=== PATIENT | male | born 1940 | race Caucasian/White ===

== ENCOUNTER 2019-04-20 17:00 | Inpatient (IN) | payer OTHER ==
[~2019-04-20] VITALS: Ht 167.6 cm; Wt 77.1 kg
[2019-04-20] MEDS ORDERED: NEURONTIN300 MG PO (17:12)
[2019-04-20] MEDS ORDERED: ASA81 MG (17:13)
--- NOTE | 2019-04-20 17:13 | NUR ---
SE RECIBE MASCULINO DE 78 ANOS,SONOLIENTO,EN COMPANIA DE FAMILIAR QUIEN REFIERE DEBILIDAD LA CUAL COMENZO HOY. SE UBICA PACIENTE EN AREA DE OBSERVACION PARA EVALUACION MEDICA.
--- NOTE | 2019-04-20 17:29 | NUR ---
MS ESTRADA ORIENTA PTE Y FAMILIARES SOBRE TX MEDICO EL CUAL REFIERE ENTENDER.SE LE EXTRAEN MUESTRAS BAJO MEDIDAS ASEPTICAS,SE CANALIZA Y SE COLOCA FLUIDOS DE MANTENIMIENTO,SE NOTIFICA CT Y SE REALIZA EKG POR MR LIAO.
[2019-04-20] MEDS ORDERED: VASOTEC2.5 MG PO (18:17)
[2019-05-02] MEDS ORDERED: METOPROLOL TART50 MG PO (17:32)
[2019-05-02] MEDS ORDERED: TAMSULOSIN HCL0.4 MG PO (17:32)
[2019-05-02] MEDS ORDERED: HYDRALAZINE HCL25 MG PO (17:32)
[2019-05-02] MEDS ORDERED: DOXYCYCLINE HY100 M2 PO (17:33)
[2019-05-02] MEDS ORDERED: APETIGEN-PLUS1 EACH PO (17:50)
== END 2019-05-02 19:28 | disposition home or self-care (01) | DRG 659 ==
LOC: ER 17:00 → ICU 20:28 → ICU-2 20:28 → ICU 04-21 14:52 → MEDJ 04-30 07:09 → ICU 04-30 08:45 → MEDJ 04-30 13:23
PROVIDERS: Urology; ADMIT Internal Medicine
PROC: 4A033R1 Measurement of Arterial Saturation, Peripheral, Percutaneous Approach (ICD-10-PCS; 2019-04-20)
PROC: BW28ZZZ Computerized Tomography (CT Scan) of Head (ICD-10-PCS; 2019-04-20)
PROC: BW21ZZZ Computerized Tomography (CT Scan) of Abdomen and Pelvis (ICD-10-PCS; 2019-04-20)
PROC: 02HV33Z Insertion of Infusion Device into Superior Vena Cava, Percutaneous Approach (ICD-10-PCS; 2019-04-20)
PROC: B54NZZZ Ultrasonography of Left Upper Extremity Veins (ICD-10-PCS; 2019-04-25)
PROC: 8E0ZXY6 Isolation (ICD-10-PCS; 2019-04-26)
PROC: BW21ZZZ Computerized Tomography (CT Scan) of Abdomen and Pelvis (ICD-10-PCS; 2019-04-26)
PROC: 0T788DZ Dilation of Bilateral Ureters with Intraluminal Device, Via Natural or Artificial Opening Endoscopic (ICD-10-PCS; principal; 2019-04-28 13:00)
DX: N13.2 Hydronephrosis with renal and ureteral calculous obstruction (principal); I63.89 Other cerebral infarction; G93.41 Metabolic encephalopathy; R65.10 Systemic inflammatory response syndrome (SIRS) of non-infectious origin without acute organ dysfunction; L03.114 Cellulitis of left upper limb; N17.8 Other acute kidney failure; C61 Malignant neoplasm of prostate; R31.0 Gross hematuria; I12.9 Hypertensive chronic kidney disease with stage 1 through stage 4 chronic kidney disease, or unspecified chronic kidney disease; N18.9 Chronic kidney disease, unspecified; M48.061 Spinal stenosis, lumbar region without neurogenic claudication; B95.62 Methicillin resistant Staphylococcus aureus infection as the cause of diseases classified elsewhere

== ENCOUNTER 2019-05-26 14:02 | Inpatient (IN) | payer OTHER ==
[~2019-05-26] VITALS: Ht 165.1 cm; Wt 69.9 kg
[~2019-05-26 14:02] MED LIST: APETIGEN-PLUS1 EACH PO; ASA81 MG; DOXYCYCLINE HY100 M2 PO; HYDRALAZINE HCL25 MG PO; METOPROLOL TART50 MG PO; NEURONTIN300 MG PO; TAMSULOSIN HCL0.4 MG PO; VASOTEC2.5 MG PO
[2019-05-26] MEDS ORDERED: APETIGEN-PLUS1 EACH (15:44)
[2019-05-26] MEDS ORDERED: SIMVASTATIN20 MG (15:45)
--- NOTE | 2019-05-26 15:45 | NUR ---
PTE INDICA QUE LLEVA ISACC SEMANA CON PRESIONES BAJAS. PTE SE OBSERVA TEMBALNDO Y CON DIFICULTAD PARA HABLAR. PTE ALERTA CONSCIENTE Y ORIENTADO X3
--- NOTE | 2019-05-26 16:43 | NUR ---
PACIENTE ALERTA Y ORIENTADO X3. EN BERNIE #16 EN UNIDAD DE DOLOR DE PECHO. PACIENTE REFIERE NO TENER DOLOR EN EL PECHO. SE OBSERVA BUEN PATRON RESPIRATORIO. SATURANDO OXIGENO MANUAL ENTRE 96-98%. CONECTADO A MONITOR CARDIACO. SE ORIENTA SOBRE PROCEDIMIENTO Y TX A RECIBIR Y REFIERE ENTENDER PACIENTE Y ESPOSA. SE REALIZA MUESTRAS DE LABORATOKRIO BAJO MEDIDAS ASEPTICAS. CANALIZACION PATENTE Y JOSLYN DE EDEMA Y ERITEMA. PACIENTE CON LEG POE, ORINA AMARILLO TURBIO Y FETIDA. SE DESCARTA 600ML DE ORINA. SE MANTIENE BAJO OBSERVACION POR CAMBIOS SIGNIFICATIVOS. 1725 SE MIDE TEMPERATURA A PACIENTE EN 104.3F, SE NOTIFICA A DR. SOLARES. MEDICO ORDENA ADMINISTRAR 2 TYLENOL PO STAT, SE ADMINISTRA LAS MISMAS. SE COLOCA COMPRESAS DE HIELO A PACIENTE. SE MANTIENE BAJO OBSERVACION POR CAMBIOS SIGNIFICATIVOS.
--- NOTE | 2019-05-26 21:19 | NUR ---
SE ORIENTA A PACIENTE SOBRE TX A RECIBIR Y REFIERE ENTENDER. SE ADMINISTRA MEDICAMENTO NICOLE ORDEN MEDICA. SE LLAMA A ESPOSA DEL PACIENTE PARA NOTIFICAR QUE EL DR. SOLARES SANYA DE GUILLERMO A PACIENTE Y REFIERE QUE NO TIENE TRANSPORTACION. REFIERE QUE CARD HIJO VIVE LEJOS, NO PUEDE A ESTA HORA Y QUE MANANA TEMPRANO LO LLAMARA PARA QUE LO BUSQUE.
--- NOTE | 2019-05-27 01:19 | NUR ---
SE RECIBE PT ALERTA Y ORIENTADO X3 ESFERAS, AL MOMENTO LO ENTREGAN DE GUILLERMO, INDICA NO TIENE VEE IRSE AL MOMENTO POR LA HORA. REFIERE EN LA MANANA LO VIENEN A BUSCAR.
--- NOTE | 2019-05-27 06:24 | NUR ---
PT ALERTA Y ORIENTADO X3 ESFERAS, DADO DE GUILLERMO DESDE TURNO 3-11, ORIENTADO POR DR SOLARES. SE LLAMA A FAMILIAR: . KIM BOLAND AL [phone] PARA JAIR SEGUIMIENTO AL MISMO. LA CRISTINO INDICA NO PUEDE GUIAR Y LLEGARA APROXIMADAMENTE A LAS 830AM CON UN FAMILIAR. SE LE NOTIFICA ESTO ULTIMO AL PT.
--- NOTE | 2019-05-27 07:16 | NUR ---
SE RECIBE DE TURNO ANTERIOR. PACIENTE ALERTA Y ORIENTADO EN HOME ESFERAS. SE OBSERVA CON BUEN PATRON RESPIRATORIO. PIEL TIBIA AL TACTO. EN BERNIE. CABECERA A 30 GRADOS. BARANDAS ELEVADAS POR CARD SEGURIDAD. EL PACIENTE FUE DADO DE GUILLERMO DESDE EL TURNO 3 A 11 DE ARIS, AL MOMENTO EN ESPERA DE SER RECOGIDO POR FAMILIAR.
== END 2019-06-03 18:43 | disposition home or self-care (01) | DRG 689 ==
LOC: ER 14:02 → ICU-2 05-27 15:04 → MEDJ 05-27 15:04 → SEC-K 05-29 14:59 → MEDJ 05-29 15:02
PROVIDERS: ADMIT Internal Medicine
PROC: 3E0336Z Introduction of Nutritional Substance into Peripheral Vein, Percutaneous Approach (ICD-10-PCS; 2019-05-27)
PROC: B246ZZZ Ultrasonography of Right and Left Heart (ICD-10-PCS; principal; 2019-05-28)
PROC: B246ZZZ Ultrasonography of Right and Left Heart (ICD-10-PCS; 2019-05-29)
PROC: 8E0ZXY6 Isolation (ICD-10-PCS; 2019-05-30)
PROC: BW21ZZZ Computerized Tomography (CT Scan) of Abdomen and Pelvis (ICD-10-PCS; 2019-05-31)
DX: N39.0 Urinary tract infection, site not specified (principal); A41.9 Sepsis, unspecified organism; N17.8 Other acute kidney failure; C61 Malignant neoplasm of prostate; I10 Essential (primary) hypertension; R31.0 Gross hematuria; Z16.12 Extended spectrum beta lactamase (ESBL) resistance; B96.29 Other Escherichia coli [E. coli] as the cause of diseases classified elsewhere; B96.1 Klebsiella pneumoniae [K. pneumoniae] as the cause of diseases classified elsewhere; I95.89 Other hypotension; T83.028A Displacement of other urinary catheter, initial encounter

== ENCOUNTER 2019-06-10 14:27 | Inpatient (IN) | payer OTHER ==
[~2019-06-10] VITALS: Ht 165.1 cm; Wt 69.9 kg
[~2019-06-10 14:27] MED LIST changes: +APETIGEN-PLUS1 EACH; +SIMVASTATIN20 MG
[2019-06-10] MEDS ORDERED: SIMVASTATIN5 MG (14:45)
[2019-06-18] MEDS ORDERED: APETIGEN-PLUS1 EACH PO (13:53)
[2019-06-18] MEDS ORDERED: VASOTEC2.5 MG PO (13:54)
[2019-06-18] MEDS ORDERED: APETIGEN L790 MG/15 PO (14:40)
== END 2019-06-18 15:42 | disposition home or self-care (01) | DRG 659 ==
LOC: ER 14:27 → MEDJ 22:26 → ICU-2 22:26 → MEDJ 06-12 15:31 → SURG 06-12 15:41 → MEDJ 06-12 15:47
PROVIDERS: Urology; ADMIT Internal Medicine
PROC: 0T9B70Z Drainage of Bladder with Drainage Device, Via Natural or Artificial Opening (ICD-10-PCS; 2019-06-10)
PROC: BT4JZZZ Ultrasonography of Kidneys and Bladder (ICD-10-PCS; 2019-06-11)
PROC: 8E0ZXY6 Isolation (ICD-10-PCS; 2019-06-12)
PROC: 02HV33Z Insertion of Infusion Device into Superior Vena Cava, Percutaneous Approach (ICD-10-PCS; 2019-06-15)
PROC: 0TC68ZZ Extirpation of Matter from Right Ureter, Via Natural or Artificial Opening Endoscopic (ICD-10-PCS; 2019-06-17)
PROC: 0T768DZ Dilation of Right Ureter with Intraluminal Device, Via Natural or Artificial Opening Endoscopic (ICD-10-PCS; principal; 2019-06-17 07:00)
PROC: 30233N1 Transfusion of Nonautologous Red Blood Cells into Peripheral Vein, Percutaneous Approach (ICD-10-PCS; 2019-06-18)
DX: N20.1 Calculus of ureter (principal); G93.41 Metabolic encephalopathy; R65.11 Systemic inflammatory response syndrome (SIRS) of non-infectious origin with acute organ dysfunction; N17.8 Other acute kidney failure; N39.0 Urinary tract infection, site not specified; L03.114 Cellulitis of left upper limb; C61 Malignant neoplasm of prostate; R97.21 Rising PSA following treatment for malignant neoplasm of prostate; N28.1 Cyst of kidney, acquired; I10 Essential (primary) hypertension; D63.8 Anemia in other chronic diseases classified elsewhere; N39.8 Other specified disorders of urinary system

== ENCOUNTER 2021-09-12 12:55 | Emergency (ER) | payer OTHER ==
[~2021-09-12] VITALS: Ht 165.1 cm; Wt 68.0 kg
[~2021-09-12 12:55] MED LIST changes: +APETIGEN L790 MG/15 PO; +SIMVASTATIN5 MG
[2021-09-12] MEDS ORDERED: GRALISE600 MG (13:16)
== END 2021-09-12 23:30 | disposition designated cancer center or children's hospital (05) ==
LOC: ER 12:55
DX: N13.8 Other obstructive and reflux uropathy (principal); R53.1 Weakness; N39.0 Urinary tract infection, site not specified; Z11.52 Encounter for screening for COVID-19